=== PATIENT | male | born 1985 | race African-American/Black ===

== ENCOUNTER 2024-11-16 04:15 | Emergency (ER) | payer MEDICAID ==
[~2024-11-16] VITALS: Ht 175.3 cm; Wt 99.8 kg
[2024-11-16 05:07] LABS: *BILIRUBIN,URIN 1+ (NEGATIVE); *BLOOD, URINE NEGATIVE (NEGATIVE); *CLARITY,URINE CLEAR (CLEAR); *COLOR,URINE YELLOW (YELLOW); *KETONES,URINE NEGATIVE (NEGATIVE); *PROTEIN,URINE 1+ (NEGATIVE); LEUKOCYTE ESTERASE ,URINE TRACE (NEGATIVE); NITRITE, URINE NEGATIVE (NEGATIVE); PH,URINE 6.5 (5.0-8.0); UGLUCOSE NEGATIVE (NEGATIVE)
[2024-11-16 05:12] LABS: BACTERIA,URINE NONE SEEN /HPF (NONE SEEN); SQUAMOUS EPITHELIAL CELL,UR FEW /HPF (NONE SEEN); WBC,URINE 0-3 /HPF (0-3)
[2024-11-16] MEDS ORDERED: DOXY-326 PO (05:16)
[2024-11-16 05:32] LABS: HIV-1 p24 ANTIGEN NON REACTIVE (NONREACTIVE); HIV-1/2 ANTIBODY NON REACTIVE (NONREACTIVE)
[2024-11-16] MEDS ORDERED: DOXYCYCLINE HYCLATE 100 MG TABLET ONE (05:33)
[2024-11-16] MEDS ORDERED: CEFTRIAXONE 500 MG VIAL ONE (05:33)
[2024-11-16] MEDS: DOXYCYCLINE HYCLATE 100 MG TABLET PO ONE (05:34)
[2024-11-16] MEDS: CEFTRIAXONE 500 MG VIAL IM ONE (05:34)
[2024-11-16 06:00] VITALS: BP 150/112; TEMP 98
[2024-11-18 14:07] LABS: *CHLAMYDIA NAA Negative (Negative); *GC NAA Negative (Negative); *TRIC.VAG. NAA Negative (Negative)
[2024-11-19 00:08] LABS: HEPATITIS B CORE AB, TOTAL Negative (Negative); HEPATITIS B SURFACE AB, QUAL Reactive (.); HEPATITIS B SURFACE AG Negative (Negative); HEPATITIS C VIRUS ANTIBODY Non Reactive (Non Reactive)
== END 2024-11-16 06:01 | disposition home or self-care (01) ==
LOC: ER 04:20
DX: N34.2 Other urethritis (principal); I10 Essential (primary) hypertension; Z72.51 High risk heterosexual behavior
CPT/HCPCS: 99283; 86592; 81001; 87806; 96372; 86803; 87340; 87491; 86706; 86704; J0696; A4606; A4663